=== PATIENT | female | born 1980 | race Caucasian/White ===

== ENCOUNTER 2021-10-14 16:00 | Emergency (ER) | payer MEDICARE ==
[~2021-10-14] VITALS: Ht 160 cm; Wt 61.2 kg
--- NOTE | 2021-10-14 16:00 | NUR ---
PT [id number] FROM [place] STRE[place], AGITATED "THROWING BRICKS AT CARS" PT IS AAOX0. NOT IN RESPIRATORY DISTRESS, V/S STABLE, KEPT RESTED AND COMFORTABLE. WILL CONTINUE TO MONITOR.
--- NOTE | 2021-10-14 16:08 | NUR ---
PT SEEN AND EXAMINED BY .
[2021-10-14 16:32] LABS: BASOPHILS # (AUTO) 0.1 K/uL (0.0-0.2); BASOPHILS % (AUTO) 1.5 % (0.0-2.0); EOSINOPHILS % (AUTO) 0.9 % (0.0-6.0); HEMATOCRIT 34 % (33-45); HEMOGLOBIN 11.3 g/dL (11.5-14.8); LYMPHOCYTES # (AUTO) 2.8 K/uL (0.8-4.8); LYMPHOCYTES % (AUTO) 32.6 % (20.0-44.0); MEAN CORPUSCULAR HGB CONC 33 g/dl (31.0-36.0); MEAN CORPUSCULAR VOLUME 85 fL (82-100); MONOCYTES # (AUTO) 0.7 K/uL (0.1-1.30); MONOCYTES % (AUTO) 7.9 % (2.0-12.0); NEUTROPHILS # (AUTO) 4.9 K/uL (1.8-8.9); NEUTROPHILS % (AUTO) 57.1 % (43.0-81.0); PLATELET COUNT (AUTO) 266 K/uL (150-450); RED BLOOD CELL COUNT(AUTO) 4.06 MIL/uL (4.0-5.2); WHITE BLOOD COUNT (AUTO) 8.6 K/uL (4.3-11.0)
--- NOTE | 2021-10-14 16:46 | NUR ---
URINE SPECIMEN COLLECTED AND SENT TO LAB.
[2021-10-14 17:10] LABS: ALANINE AMINOTRANSFERASE 15 U/L (12-78); ALBUMIN 3.6 g/dL (3.4-5.0); ALCOHOL, BLOOD 192 mg/dL (0-0); ALKALINE PHOSPHATASE 67 U/L (46-116); ASPARTATE AMINOTRANSFERASE 17 U/L (15-37); BILIRUBIN,DIRECT 0.1 mg/dL (0.0-0.2); BILIRUBIN,TOTAL 0.1 mg/dL (0.2-1.0); CALCIUM, SERUM 8.1 mg/dL (8.5-10.1); CARBON DIOXIDE 25 mmol/L (21-32); CHLORIDE 104 mmol/L (98-107); CREATININE 0.9 mg/dL (0.6-1.3); GLUCOSE 53 mg/dL (74-106); POTASSIUM 3.1 mmol/L (3.5-5.1); SODIUM SERUM 139 mmol/L (136-145); TOTAL PROTEIN, SERUM 7.1 g/dL (6.4-8.2); UREA NITROGEN, BLOOD 11 mg/dL (7-18)
[2021-10-14 17:16] LABS: ACETAMINOPHEN < 0 ug/ml (10-30)
[2021-10-14 17:43] LABS: BILIRUBIN,URINE NEGATIVE (NEGATIVE); COLOR,URINE YELLOW (YELLOW); LEUKOCYTE ESTERASE ,URINE NEGATIVE (NEGATIVE); NITRITE, URINE NEGATIVE (NEGATIVE); PROTEIN,URINE NEGATIVE (NEGATIVE); UGLUCOSE NEGATIVE (NEGATIVE); UROBILINOGEN,URINE 0.2 EU/dL (0.2)
[2021-10-14] MEDS ORDERED: HALOPERIDOL LACTATE INJ 5 MG/ML VIAL ONE (19:49)
[2021-10-14] MEDS ORDERED: HALOPERIDOL LACTATE INJ 5 MG/ML VIAL IM ONE (20:00)
--- NOTE | 2021-10-14 21:58 | NUR ---
COVID ANTIGEN SWAB COLLECTED AND SENT TO LAB. PT A/OX1. RESP EVEN AND NON LABORED.
--- NOTE | 2021-10-14 22:33 | NUR ---
CALLED [facility] AT [phone] AND [facility] FOR EVALUATION
--- NOTE | 2021-10-14 23:58 | NUR ---
Patient discharged to home in stable condition. Written and verbal after care instructions given. Patient verbalizes understanding of instruction.
[2021-10-15 00:03] VITALS: BP 135/80
== END 2021-10-15 00:04 | disposition home or self-care (01) ==
LOC: ER 16:02 → EDBD 16:02 → ER 10-15 00:04
DX: F23 Brief psychotic disorder (principal); F19.10 Other psychoactive substance abuse, uncomplicated; F10.229 Alcohol dependence with intoxication, unspecified; Y90.6 Blood alcohol level of 120-199 mg/100 ml; Z59.00 Homelessness unspecified; F12.10 Cannabis abuse, uncomplicated; F13.10 Sedative, hypnotic or anxiolytic abuse, uncomplicated; Z20.822 Contact with and (suspected) exposure to COVID-19
CPT/HCPCS: 36415; 80048; 80076; 80143; 80307; 80320; 81003; 85025; 87426; 96372; 99291; J1630; C9803; G0480

== ENCOUNTER 2023-04-29 14:27 | Inpatient (IN) | payer MEDICARE, OTHER ==
[~2023-04-29] VITALS: Ht 157.5 cm; Wt 48.5 kg
[2023-04-29 15:28] LABS: BASOPHILS # (AUTO) 0.1 K/uL (0.0-0.2); BASOPHILS % (AUTO) 1.4 % (0.0-2.0); EOSINOPHILS # (AUTO) 0.2 K/uL (0.0-0.7); EOSINOPHILS % (AUTO) 2.2 % (0.0-6.0); HEMATOCRIT 34 % (33-45); HEMOGLOBIN 11.2 g/dL (11.5-14.8); LYMPHOCYTES # (AUTO) 2.1 K/uL (0.8-4.8); LYMPHOCYTES % (AUTO) 30.3 % (20.0-44.0); MEAN CORPUSCULAR HEMOGLOBIN 27 PG (26.0-33.0); MEAN CORPUSCULAR HGB CONC 33 g/dl (31.0-36.0); MEAN CORPUSCULAR VOLUME 81 fL (82-100); MONOCYTES # (AUTO) 0.4 K/uL (0.1-1.30); MONOCYTES % (AUTO) 6.2 % (2.0-12.0); NEUTROPHILS # (AUTO) 4.2 K/uL (1.8-8.9); NEUTROPHILS % (AUTO) 59.9 % (43.0-81.0); PLATELET COUNT (AUTO) 456 K/uL (150-450); WHITE BLOOD COUNT (AUTO) 6.9 K/uL (4.3-11.0)
[2023-04-29 15:45] LABS: ALANINE AMINOTRANSFERASE 16 U/L (12-78); ALCOHOL, BLOOD 82 mg/dL (0-10); ALKALINE PHOSPHATASE 90 U/L (46-116); ASPARTATE AMINOTRANSFERASE 17 U/L (15-37); BILIRUBIN,TOTAL 0.2 mg/dL (0.2-1.0); CALCIUM, SERUM 8.5 mg/dL (8.5-10.1); CARBON DIOXIDE 25 mmol/L (21-32); CHLORIDE 106 mmol/L (98-107); CREATININE 0.6 mg/dL (0.6-1.3); GLUCOSE 81 mg/dL (74-106); POTASSIUM 3.2 mmol/L (3.5-5.1); SODIUM SERUM 142 mmol/L (136-145); TOTAL PROTEIN, SERUM 7.2 g/dL (6.4-8.2); UREA NITROGEN, BLOOD 4 mg/dL (7-18)
[2023-04-29 15:48] LABS: PREGNANCY TEST URINE QUAL NEGATIVE (NEGATIVE)
[2023-04-29 15:52] LABS: APPEARANCE,URINE CLEAR (CLEAR); BILIRUBIN,URINE NEGATIVE (NEGATIVE); BLOOD, URINE TRACE-INTA Ery/uL (NEGATIVE); COLOR,URINE YELLOW (YELLOW); KETONES,URINE NEGATIVE (NEGATIVE); LEUKOCYTE ESTERASE ,URINE NEGATIVE (NEGATIVE); NITRITE, URINE NEGATIVE (NEGATIVE); PROTEIN,URINE NEGATIVE (NEGATIVE); UGLUCOSE NEGATIVE (NEGATIVE); UROBILINOGEN,URINE 0.2 EU/dL (0.2)
[2023-04-29 15:54] LABS: ADD URINE CULTURE NO; BACTERIA,URINE None seen /HPF (None Seen); MUCUS,URINE Many /LPF (None Seen); WBC,URINE 0-2 /HPF (0-3)
[2023-04-29 15:57] LABS: SALICYLATE < 2.3 mg/dL (2.8-20.0)
[2023-04-29 15:58] LABS: ACETAMINOPHEN 0 ug/ml (10-30)
[2023-04-29 16:04] LABS: BARBITURATE, URINE NEGATIVE (NEGATIVE); COCCAINE, URINE NEGATIVE (NEGATIVE); OPIATE, URINE NEGATIVE (NEGATIVE); PHENCYCLIDINE SCREEN,URINE NEGATIVE (NEGATIVE)
[2023-04-29 16:05] LABS: AMPHETAMINE, URINE POSITIVE (NEGATIVE); BENZODIAZEPINE, URINE POSITIVE (NEGATIVE); CANNABINOID, URINE POSITIVE (NEGATIVE)
[2023-04-29] MEDS ORDERED: SULFAMETH/TRIMETH 800/160 MG 1 UDTAB TABLET ONE (18:59)
[2023-04-29] MEDS ORDERED: CEFTRIAXONE 1 G VIAL ONE (18:59)
[2023-04-29] MEDS ORDERED: LIDOCAINE /MPF 1% VIAL 5 ML VIAL ONE (19:00)
[2023-04-29] MEDS ORDERED: CEFTRIAXONE 1 G VIAL IM ONE (19:00)
[2023-04-29] MEDS ORDERED: SULFAMETH/TRIMETH 800/160 MG 1 UDTAB TABLET PO ONE (19:00)
[2023-04-29] MEDS ORDERED: HALOPERIDOL LACTATE INJ 5 MG/ML VIAL ONE (20:39)
[2023-04-29] MEDS ORDERED: diphenhydrAMINE HCL 50 MG/ML VIAL ONE (20:39)
[2023-04-29] MEDS ORDERED: LORAZEPAM INJ 2 MG/ML VIAL ONE (20:40)
[2023-04-29] MEDS ORDERED: HALOPERIDOL LACTATE INJ 5 MG/ML VIAL IM ONE (21:00)
[2023-04-29] MEDS ORDERED: diphenhydrAMINE HCL 50 MG/ML VIAL IM ONE (21:00)
[2023-04-29] MEDS ORDERED: LORAZEPAM INJ 2 MG/ML VIAL IM ONE (21:00)
[2023-04-30 11:52] VITALS: O2SAT 96
[2023-04-30] MEDS ORDERED: BLOOD SUGAR DIAGNOSTIC 1 EACH STRIP IN ONE (15:00)
[2023-04-30] MEDS ORDERED: ACETAMINOPHEN 325 MG TABLET PO PRN (15:00)
[2023-04-30] MEDS ORDERED: LORAZEPAM 0.5 MG TABLET PO PRN (15:00)
[2023-04-30] MEDS ORDERED: MAGNESIUM HYDROXIDE 30 ML UDC PO PRN (15:00)
[2023-04-30] MEDS ORDERED: TEMAZEPAM 7.5 MG CAPSULE PO PRN (15:00)
[2023-04-30] MEDS ORDERED: MAG HYDROX/AL HYDROX/SIMETH 30 ML UDC PO PRN (15:00)
[2023-04-30 16:00] VITALS: BP 158/97; TEMP 98.6; O2SAT 96
[2023-04-30 20:53] VITALS: BP 138/56; TEMP 98.7; O2SAT 97
[2023-05-01 07:34] LABS: ALBUMIN 2.7 g/dL (3.4-5.0); BILIRUBIN,TOTAL 0.2 mg/dL (0.2-1.0); CALCIUM, SERUM 8.6 mg/dL (8.5-10.1); CREATININE 0.6 mg/dL (0.6-1.3); POTASSIUM 3.9 mmol/L (3.5-5.1)
[2023-05-01 08:00] VITALS: BP 129/57; TEMP 98.4; O2SAT 100
[2023-05-01] MEDS: FOLIC ACID 1 MG TABLET PO SCH (09:44)
[2023-05-01] MEDS: THIAMINE HCL 100 MG TABLET PO SCH (09:44)
[2023-05-01] MEDS ORDERED: LORAZEPAM INJ 2 MG/ML VIAL IM ONE (11:00)
[2023-05-01] MEDS ORDERED: OLANZAPINE 10 MG VIAL IM ONE (11:00)
[2023-05-01] MEDS: OLANZAPINE 5 MG TABLET PO SCH ×2 (13:55→17:28)
[2023-05-01] MEDS: MUPIROCIN OINT 2% 22 GM TUBE TP SCH (13:57)
[2023-05-02] MEDS: MUPIROCIN OINT 2% 22 GM TUBE TP SCH ×2 (01:32→13:44)
[2023-05-02 08:00] VITALS: BP 94/71; TEMP 97.8; O2SAT 100
[2023-05-02] MEDS: FOLIC ACID 1 MG TABLET PO SCH (08:43)
[2023-05-02] MEDS: THIAMINE HCL 100 MG TABLET PO SCH (08:43)
[2023-05-02] MEDS: OLANZAPINE 5 MG TABLET PO SCH ×3 (08:43→17:02)
[2023-05-02] MEDS: OXCARBAZEPINE 150 MG TABLET PO SCH ×3 (11:21→17:02)
[2023-05-02 16:00] VITALS: BP 115/68; TEMP 98.1; O2SAT 96
[2023-05-03 08:00] VITALS: BP 110/77; TEMP 98; O2SAT 99
[2023-05-03] MEDS: FOLIC ACID 1 MG TABLET PO SCH (08:10)
[2023-05-03] MEDS: THIAMINE HCL 100 MG TABLET PO SCH (08:10)
[2023-05-03] MEDS: OXCARBAZEPINE 150 MG TABLET PO SCH ×2 (08:10→13:08)
[2023-05-03] MEDS: OLANZAPINE 5 MG TABLET PO SCH ×2 (08:10→13:08)
[2023-05-03] MEDS ORDERED: MUPIROCIN OINT 2% 22 GM TUBE TP SCH (09:00)
== END 2023-05-03 13:25 | disposition home or self-care (01) | DRG 885 ==
LOC: ER 14:55 → GPS 04-30 13:55
PROVIDERS: ADMIT Psychiatry & Neurology Psychosomatic Medicine; ATTEND Internal Medicine
DX: F25.0 Schizoaffective disorder, bipolar type (principal); E87.1 Hypo-osmolality and hyponatremia; R45.851 Suicidal ideations; L03.115 Cellulitis of right lower limb; F29 Unspecified psychosis not due to a substance or known physiological condition; Y90.4 Blood alcohol level of 80-99 mg/100 ml; F10.129 Alcohol abuse with intoxication, unspecified; F60.9 Personality disorder, unspecified; G31.84 Mild cognitive impairment of uncertain or unknown etiology; E87.6 Hypokalemia; Z91.199 Patient's noncompliance with other medical treatment and regimen due to unspecified reason; F19.10 Other psychoactive substance abuse, uncomplicated
CPT/HCPCS: 36415; 70450-TC; 72125-TC; 80048-TC; 80053-TC; 80061-TC; 80076-TC; 81001; 82962-TC; 84484-TC; 84703-TC; 85025-TC; 87081-TC; 93971-TC; C9803; G0480; J0696; J1200; J1630; J2060; J3490; J7030

== ENCOUNTER 2023-08-06 15:31 | Emergency (ER) | payer MEDICARE, OTHER ==
[~2023-08-06] VITALS: Ht 154.9 cm; Wt 50.8 kg
[2023-08-06 15:46] VITALS: BP 128/70; TEMP 98.5; O2SAT 98
[2023-08-06] MEDS ORDERED: OLANZAPINE 10 MG VIAL IM ONE (16:55)
[2023-08-06] MEDS: OLANZAPINE 10 MG VIAL IM ONE (17:04)
== END 2023-08-06 18:12 ==
LOC: ER 15:33
DX: R46.1 Bizarre personal appearance (principal)
CPT/HCPCS: J3490

== ENCOUNTER 2023-10-27 09:40 | Emergency (ER) | payer OTHER ==
[~2023-10-27] VITALS: Ht 154.9 cm; Wt 73.9 kg
[2023-10-27] MEDS ORDERED: diphenhydrAMINE HCL 50 MG/ML VIAL ONE (09:48)
[2023-10-27] MEDS ORDERED: OLANZAPINE 10 MG VIAL IM ONE (09:49)
[2023-10-27] MEDS: diphenhydrAMINE HCL 50 MG/ML VIAL IM ONE (10:00)
[2023-10-27] MEDS: OLANZAPINE 10 MG VIAL IM ONE (10:00)
[2023-10-27 11:12] LABS: CALCIUM, SERUM 8.5 mg/dL (8.5-10.1); CARBON DIOXIDE 27 mmol/L (21-32); CHLORIDE 104 mmol/L (98-107); CREATININE 0.9 mg/dL (0.6-1.3); GLUCOSE 136 mg/dL (74-106); POTASSIUM 3.9 mmol/L (3.5-5.1); SODIUM SERUM 139 mmol/L (136-145); UREA NITROGEN, BLOOD 21 mg/dL (7-18)
[2023-10-27 11:16] LABS: BASOPHILS % (AUTO) 0.5 % (0.0-2.0); EOSINOPHILS # (AUTO) 0.1 K/uL (0.0-0.7); EOSINOPHILS % (AUTO) 0.6 % (0.0-6.0); HEMATOCRIT 34 % (33-45); HEMOGLOBIN 11.2 g/dL (11.5-14.8); LYMPHOCYTES # (AUTO) 1.7 K/uL (0.8-4.8); LYMPHOCYTES % (AUTO) 21.2 % (20.0-44.0); MEAN CORPUSCULAR HEMOGLOBIN 26 PG (26.0-33.0); MEAN CORPUSCULAR HGB CONC 33 g/dl (31.0-36.0); MEAN CORPUSCULAR VOLUME 80 fL (82-100); MONOCYTES # (AUTO) 0.9 K/uL (0.1-1.30); MONOCYTES % (AUTO) 10.9 % (2.0-12.0); NEUTROPHILS # (AUTO) 5.5 K/uL (1.8-8.9); NEUTROPHILS % (AUTO) 66.8 % (43.0-81.0); PLATELET COUNT (AUTO) 340 K/uL (150-450); RED CELL DISTRIBUTION WIDTH 17.1 % (11.5-15.0); WHITE BLOOD COUNT (AUTO) 8.2 K/uL (4.3-11.0)
[2023-10-27 11:21] LABS: ACETAMINOPHEN <10 ug/ml (10-30); ALANINE AMINOTRANSFERASE 48 U/L (12-78); ALBUMIN 3.5 g/dL (3.4-5.0); ALCOHOL, BLOOD < 3 mg/dL (0-10); ALKALINE PHOSPHATASE 75 U/L (46-116); ASPARTATE AMINOTRANSFERASE 39 U/L (15-37); BILIRUBIN,DIRECT 0.1 mg/dL (0.0-0.2); BILIRUBIN,TOTAL 0.2 mg/dL (0.2-1.0); SALICYLATE 2.2 mg/dL (2.8-20.0); TOTAL PROTEIN, SERUM 7.2 g/dL (6.4-8.2)
[2023-10-27] MEDS ORDERED: LORAZEPAM INJ 2 MG/ML VIAL ONE ×2 (11:22→11:48)
[2023-10-27] MEDS: LORAZEPAM INJ 2 MG/ML VIAL IM ONE ×2 (11:27→11:55)
[2023-10-27 12:07] LABS: PREGNANCY TEST URINE QUAL NEGATIVE (NEGATIVE)
[2023-10-27 12:08] LABS: APPEARANCE,URINE CLEAR (CLEAR); BILIRUBIN,URINE NEGATIVE (NEGATIVE); BLOOD, URINE NEGATIVE Ery/uL (NEGATIVE); COLOR,URINE YELLOW (YELLOW); KETONES,URINE NEGATIVE (NEGATIVE); LEUKOCYTE ESTERASE ,URINE NEGATIVE (NEGATIVE); NITRITE, URINE NEGATIVE (NEGATIVE); PH,URINE 5.5 (5.0-8.0); PROTEIN,URINE NEGATIVE (NEGATIVE); UGLUCOSE NEGATIVE (NEGATIVE); UROBILINOGEN,URINE 0.2 EU/dL (0.2)
[2023-10-27 12:20] LABS: BARBITURATE, URINE NEGATIVE (NEGATIVE); BENZODIAZEPINE, URINE NEGATIVE (NEGATIVE); COCCAINE, URINE NEGATIVE (NEGATIVE); OPIATE, URINE NEGATIVE (NEGATIVE); PHENCYCLIDINE SCREEN,URINE NEGATIVE (NEGATIVE)
[2023-10-27 12:25] LABS: AMPHETAMINE, URINE POSITIVE (NEGATIVE); CANNABINOID, URINE POSITIVE (NEGATIVE)
[2023-10-27] MEDS ORDERED: HALOPERIDOL LACTATE INJ 5 MG/ML VIAL ONE (14:59)
[2023-10-27] MEDS: HALOPERIDOL LACTATE INJ 5 MG/ML VIAL IM ONE (15:04)
[2023-10-28 11:34] VITALS: BP 124/64; TEMP 98; O2SAT 94
== END 2023-10-28 11:35 | disposition left against medical advice (07) ==
LOC: ER 10:03
DX: R46.1 Bizarre personal appearance (principal)
CPT/HCPCS: 99285; 96372 ×2; 51701; 85025; 80048; 80076; 84703; 81003; 36415; 80143; 80320; 80307; J2060 ×2; J1200; J1630; J3490; G0480

== ENCOUNTER 2023-10-31 13:18 | Emergency (ER) | payer MEDICARE, OTHER ==
[~2023-10-31] VITALS: Ht 170.2 cm; Wt 79.4 kg
[2023-10-31 14:19] LABS: BASOPHILS # (AUTO) 0.1 K/uL (0.0-0.2); BASOPHILS % (AUTO) 0.7 % (0.0-2.0); EOSINOPHILS # (AUTO) 0.1 K/uL (0.0-0.7); EOSINOPHILS % (AUTO) 1.2 % (0.0-6.0); HEMATOCRIT 31 % (33-45); HEMOGLOBIN 10.4 g/dL (11.5-14.8); LYMPHOCYTES % (AUTO) 23.1 % (20.0-44.0); MEAN CORPUSCULAR HEMOGLOBIN 27 PG (26.0-33.0); MEAN CORPUSCULAR HGB CONC 33 g/dl (31.0-36.0); MEAN CORPUSCULAR VOLUME 81 fL (82-100); MONOCYTES # (AUTO) 0.7 K/uL (0.1-1.30); NEUTROPHILS # (AUTO) 5.7 K/uL (1.8-8.9); PLATELET COUNT (AUTO) 300 K/uL (150-450); RED BLOOD CELL COUNT(AUTO) 3.88 MIL/uL (4.0-5.2); WHITE BLOOD COUNT (AUTO) 8.5 K/uL (4.3-11.0)
[2023-10-31 14:37] LABS: ALANINE AMINOTRANSFERASE 40 U/L (12-78); ALBUMIN 3.5 g/dL (3.4-5.0); ALCOHOL, BLOOD 29 mg/dL (0-10); ALKALINE PHOSPHATASE 83 U/L (46-116); ASPARTATE AMINOTRANSFERASE 29 U/L (15-37); BILIRUBIN,DIRECT 0.1 mg/dL (0.0-0.2); BILIRUBIN,TOTAL 0.2 mg/dL (0.2-1.0); CALCIUM, SERUM 8.4 mg/dL (8.5-10.1); CARBON DIOXIDE 26 mmol/L (21-32); CHLORIDE 103 mmol/L (98-107); CREATININE 0.7 mg/dL (0.6-1.3); GLUCOSE 77 mg/dL (74-106); POTASSIUM 3.8 mmol/L (3.5-5.1); SALICYLATE 2.9 mg/dL (2.8-20.0); SODIUM SERUM 140 mmol/L (136-145); TOTAL PROTEIN, SERUM 6.7 g/dL (6.4-8.2); UREA NITROGEN, BLOOD 12 mg/dL (7-18)
[2023-10-31 14:42] LABS: ACETAMINOPHEN <10 ug/ml (10-30)
[2023-10-31] MEDS ORDERED: diphenhydrAMINE HCL 50 MG/ML VIAL ONE (17:59)
[2023-10-31] MEDS: diphenhydrAMINE HCL 50 MG/ML VIAL IM ONE (18:00)
[2023-10-31] MEDS ORDERED: HALOPERIDOL LACTATE INJ 5 MG/ML VIAL IV ONE (18:00)
[2023-10-31] MEDS ORDERED: HALOPERIDOL LACTATE INJ 5 MG/ML VIAL ONE (18:00)
[2023-10-31] MEDS ORDERED: diphenhydrAMINE HCL 50 MG/ML VIAL IV ONE (18:00)
[2023-10-31] MEDS: HALOPERIDOL LACTATE INJ 5 MG/ML VIAL IM ONE (18:00)
[2023-10-31 20:58] LABS: APPEARANCE,URINE CLEAR (CLEAR); BILIRUBIN,URINE NEGATIVE (NEGATIVE); BLOOD, URINE 1+ Ery/uL (NEGATIVE); COLOR,URINE YELLOW (YELLOW); KETONES,URINE TRACE mg/dL (NEGATIVE); LEUKOCYTE ESTERASE ,URINE TRACE (NEGATIVE); NITRITE, URINE POSITIVE (NEGATIVE); PROTEIN,URINE NEGATIVE (NEGATIVE); UGLUCOSE NEGATIVE (NEGATIVE); UROBILINOGEN,URINE 0.2 EU/dL (0.2)
[2023-10-31 21:02] LABS: BARBITURATE, URINE NEGATIVE (NEGATIVE); BENZODIAZEPINE, URINE NEGATIVE (NEGATIVE); COCCAINE, URINE NEGATIVE (NEGATIVE); OPIATE, URINE NEGATIVE (NEGATIVE); PHENCYCLIDINE SCREEN,URINE NEGATIVE (NEGATIVE)
[2023-10-31 21:06] LABS: AMPHETAMINE, URINE POSITIVE (NEGATIVE); CANNABINOID, URINE POSITIVE (NEGATIVE)
[2023-10-31 21:12] LABS: ADD URINE CULTURE YES; BACTERIA,URINE 4+ /HPF (None Seen); SQUAMOUS EPITHELIAL CELL,UR Few /HPF (None Seen); WBC,URINE 51-80 /HPF (0-3)
[2023-10-31 21:42] LABS: PREGNANCY TEST URINE QUAL NEGATIVE (NEGATIVE)
[2023-11-01] MEDS ORDERED: HALOPERIDOL LACTATE INJ 5 MG/ML VIAL ONE (00:03)
[2023-11-01] MEDS ORDERED: diphenhydrAMINE HCL 50 MG/ML VIAL ONE (00:07)
[2023-11-01] MEDS: HALOPERIDOL LACTATE INJ 5 MG/ML VIAL IM ONE (00:29)
[2023-11-01] MEDS: diphenhydrAMINE HCL 50 MG/ML VIAL IM ONE (00:29)
[2023-11-01] MEDS ORDERED: OLANZAPINE 10 MG VIAL IM ONE (08:30)
[2023-11-01 08:52] VITALS: BP 111/59; TEMP 97.5; O2SAT 99
== END 2023-11-01 08:53 | disposition home or self-care (01) ==
LOC: ER 13:26
DX: R46.1 Bizarre personal appearance (principal); Z20.822 Contact with and (suspected) exposure to COVID-19
CPT/HCPCS: 99285; 96372 ×4; 85025; 80048; 87086; 80076; 84703; 81001; 36415; 87426; 80143; 80320; 80307; J1200 ×2; J1630 ×2; G0480